=== PATIENT | male | born 1985 | race Hispanic/Latino ===

== ENCOUNTER 2017-10-18 19:26 | Inpatient (IN) | payer MEDICARE ==
--- NOTE | 2017-10-18 21:42 | Emergency Department Report ---
ED Male HPI - General Chief complaint: Urogenital-Male Stated complaint: PEEING BLEED Time Seen by Provider: 10/18/17 21:38 Source: patient, EMS Mode of arrival: Stretcher Limitations: No Limitations - History of Present Illness Initial comments: Gum bleeding for several months MD Complaint: other (painless hematuria) -: Sudden, days(s) (began this morning) Severity: mild Improves with: none Worsens with: none blood in urine. denies: discharge, swelling, mass, rash, urinary retention, dysuria, fever, nausea/vomiting, incontinence - Related Data Sexually active: Yes (uses barrier precaution) Allergies Allergy/AdvReac Type Severity Reaction Status Date / Time No Known Allergies Allergy Verified 10/18/17 19:59 ED Review of Systems ROS: Stated complaint: PEEING BLEED Other details as noted in HPI Comment: All other systems reviewed and negative Constitutional: denies: fever Respiratory: denies: cough Cardiovascular: denies: chest pain ED Past Medical Hx - Past Medical History Hx Asthma: Yes - Surgical History Past Surgical History?: Yes Additional Surgical History: Aortic valve removed - Social History Smoking Status: Current Every Day Smoker Substance Use Type: Marijuana ED Physical Exam - General Limitations: No Limitations General appearance: alert, in no apparent distress - Head Head exam: Present: atraumatic, normocephalic - Eye Eye exam: Present: normal appearance - ENT ENT exam: Present: mucous membranes moist, other (diffuse gum bleeding with severe tooth decay) - Neck Neck exam: Present: normal inspection - Respiratory Respiratory exam: Present: normal lung sounds bilaterally. Absent: respiratory distress - Cardiovascular Cardiovascular Exam: Present: regular rate, normal rhythm. Absent: systolic murmur, diastolic murmur, rubs, gallop - GI/Abdominal GI/Abdominal exam: Present: soft, normal bowel sounds. Absent: distended, tenderness, guarding, rebound - Rectal Rectal exam: Present: deferred - exam: Present: other (deferred) - Extremities Exam Extremities exam: Present: normal inspection - Back Exam Back exam: Present: normal inspection - Neurological Exam Neurological exam: Present: alert, oriented X3 - Psychiatric Psychiatric exam: Present: normal affect, normal mood - Skin Skin exam: Present: warm, dry, intact, normal color. Absent: rash ED Course Vital Signs 10/18/17 10/18/17 10/18/17 19:33 22:17 22:21 Temperature 97.4 F L Pulse Rate 88 64 64 Respiratory 19 20 17 Rate Blood Pressure 106/61 114/67 O2 Sat by Pulse 95 96 97 Oximetry 10/18/17 10/18/17 10/18/17 22:30 22:35 22:36 Temperature Pulse Rate 62 68 Respiratory 14 15 16 Rate Blood Pressure 117/67 117/67 O2 Sat by Pulse 97 96 99 Oximetry 10/18/17 10/18/17 10/18/17 22:41 22:45 22:51 Temperature Pulse Rate 64 62 65 Respiratory 18 18 12 Rate Blood Pressure 117/67 108/61 114/67 O2 Sat by Pulse 97 97 98 Oximetry 10/18/17 10/18/17 10/18/17 22:55 23:00 23:05 Temperature Pulse Rate 62 74 63 Respiratory 19 17 12 Rate Blood Pressure 114/67 118/68 118/68 O2 Sat by Pulse 96 97 97 Oximetry 10/18/17 10/18/17 10/18/17 23:11 23:15 23:21 Temperature Pulse Rate 71 61 71 Respiratory 17 15 13 Rate Blood Pressure 118/68 113/65 113/65 O2 Sat by Pulse 97 98 97 Oximetry 10/18/17 10/18/17 23:25 23:30 Temperature Pulse Rate 62 64 Respiratory 19 17 Rate Blood Pressure 113/65 116/57 O2 Sat by Pulse 97 96 Oximetry ED Medical Decision Making - Lab Data Result diagrams: 10/18/17 22:44 10/18/17 22:44 Laboratory Results - last 24 hr 10/18/17 10/18/17 10/18/17 22:20 22:44 22:44 WBC 10.7 RBC 5.86 H Hgb 16.6 H Hct 48.1 H MCV 82 L MCH 28 MCHC 35 H RDW 12.6 L Plt Count 194 Lymph % (Auto) 13.5 [place] % (Auto) 10.9 H Eos % (Auto) 1.4 Baso % (Auto) 0.6 Lymph # 1.5 [place] # 1.2 H Eos # 0.2 Baso # 0.1 Seg Neutrophils % 73.6 H Seg Neutrophils # 7.9 H PT INR APTT Sodium 141 Potassium 3.4 L Chloride 103.0 Carbon Dioxide 28 Anion Gap 13 BUN 11 Creatinine 0.8 Estimated GFR > 60 BUN/Creatinine Ratio 14 Glucose 107 H Calcium 8.8 Total Bilirubin 0.50 AST 22 ALT 11 Alkaline Phosphatase 84 Total Protein 7.2 Albumin 4.5 Albumin/Globulin Ratio 1.7 Urine Color Yellow Urine Turbidity Clear Urine pH 6.0 Ur Specific [place] 1.023 Urine Protein 30 mg/dl Urine Glucose (UA) 50 Urine Ketones 20 Urine Blood Mod Urine Nitrite Pos Urine Bilirubin Neg Urine Urobilinogen < 2.0 Ur Leukocyte Esterase Neg Urine WBC (Auto) 20.0 H Urine RBC (Auto) > 182.0 10/18/17 22:46 WBC RBC Hgb Hct MCV MCH MCHC RDW Plt Count Lymph % (Auto) [place] % (Auto) Eos % (Auto) Baso % (Auto) Lymph # [place] # Eos # Baso # Seg Neutrophils % Seg Neutrophils # PT > 120.0 H INR > 17.67 H* APTT 182.1 H* Sodium Potassium Chloride Carbon Dioxide Anion Gap BUN Creatinine Estimated GFR BUN/Creatinine Ratio Glucose Calcium Total Bilirubin AST ALT Alkaline Phosphatase Total Protein Albumin Albumin/Globulin Ratio Urine Color Urine Turbidity Urine pH Ur Specific [place] Urine Protein Urine Glucose (UA) Urine Ketones Urine Blood Urine Nitrite Urine Bilirubin Urine Urobilinogen Ur Leukocyte Esterase Urine WBC (Auto) Urine RBC (Auto) - Medical Decision Making Mr. Dye presents with painless hematuria and gum bleeding. Severe coagulopathy with normal liver function. INR > 17 PTT and PT severely elevated. Patient has hx of polysubstance abuse with crack cocaine and methamphetamine. His last use of drugs were several months ago. He denies poisoning or intentional overdose. I have consulted [place] [facility]. Bar Captain agreed with suspicion of rodenticide poisioning which is a long acting anticoagulant. Rodenticide has been used to lace illicit drugs. Patient has had bleeding for several months. Patient will need to be discharged home with vitamin K after inpatient stabilization. FFP and vitamin K has been ordered in the ED. Critical Care Time: Yes Critical care time in (mins) excluding proc time.: 50 Critical care attestation.: If time is entered above; I have spent that time in minutes in the direct care of this critically ill patient, excluding procedure time. ED Disposition Clinical Impression: Drug poisoning, Coagulopathy, Bleeding gums, Hematuria Disposition: OP ADMIT IP TO THIS HOSP Is pt being admited?: Yes Does the pt Need Aspirin: No Condition: Stable Time of Disposition: 02:25
[2017-10-18 22:53] LABS: Bilirubin,Urine NEG (Negative); Blood,Urine MOD (Negative); Color,Urine Yellow (Yellow); Urobilinogen,Urine < 2.0 mg/dL (<2.0)
[2017-10-18 23:04] LABS: RBC,Urine > 182.0 /HPF (0.0-6.0)
[2017-10-18 23:15] LABS: Basophils # (Auto) 0.1 K/mm3 (0.0-0.1); Basophils % (Auto) 0.6 % (0.0-1.8); Eosinophils # (Auto) 0.2 K/mm3 (0.0-0.4); Eosinophils % (Auto) 1.4 % (0.0-4.3); Hematocrit 48.1 % (35.5-45.6); Hemoglobin 16.6 gm/dl (11.8-15.2); Lymphocytes # (Auto) 1.5 K/mm3 (1.2-5.4); Lymphocytes % (Auto) 13.5 % (13.4-35.0); Mean Corpuscular HGB Conc 35 % (32-34); Mean Corpuscular Hemoglobin 28 pg (28-32); Mean Corpuscular Volume 82 fl (84-94); Monocytes # (Auto) 1.2 K/mm3 (0.0-0.8); Monocytes % (Auto) 10.9 % (0.0-7.3); Platelet Count 194 K/mm3 (140-440); Red Blood Count 5.86 M/mm3 (3.65-5.03); Red Cell Distribution Width 12.6 % (13.2-15.2)
[2017-10-18 23:35] LABS: Alanine Aminotransferase 11 units/L (7-56); Albumin 4.5 g/dL (3.9-5); BUN/Creatinine Ratio 14; Blood Urea Nitrogen 11 mg/dL (9-20); Calcium 8.8 mg/dL (8.4-10.2); Hemolysis Index 4
[2017-10-19 00:22] LABS: INR > 17.67 (0.87-1.13); Partial Thromboplastin Time 182.1 Sec. (24.2-36.6)
[2017-10-19] MEDS ORDERED: NACL 0.9% 500 ML 500 ML IV ONE (02:13)
--- NOTE | 2017-10-19 06:07 | History and Physical Report ---
History of Present Illness Date of examination: 10/19/17 Date of admission: 10/19/17 02:25 Chief complaint: Chief complaint: Bleeding from the gums and bloody urine since a.m. History of present illness: ANABEL: 31-year-old male with history of aortic valve replacement on Coumadin comes in for bleeding from the gums and also blood in the urine. Patient is on Coumadin 10 mg. He checked 1 week ago and INR was between 2 and 3. Patient smokes marijuana on a regular basis and also smokes cigarettes about a pack a day. No shortness of breath or chest pain. No fever. No recent travel. Past Medical History Hx Asthma: Yes Surgical History Past Surgical History?: Yes Additional Surgical History: Aortic valve removed Social History Smoking Status: Current Every Day Smoker Substance Use Type: Marijuana Family history Htn Review of Systems ROS: Stated complaint: PEEING BLEED Other details as noted in HPI Comment: All other systems reviewed and negative Constitutional: denies: fever Respiratory: denies: cough Cardiovascular: denies: chest pain Medications and Allergies Allergies Allergy/AdvReac Type Severity Reaction Status Date / Time No Known Allergies Allergy Verified 10/18/17 19:59 Home Medications Medication Instructions Recorded Confirmed Last Taken Type Coumadin 10 mg PO DAILY 10/19/17 10/19/17 10/18/17 10:00 History Exam - Constitutional Vitals: Temp Pulse Resp BP Pulse Ox 98.0 F 57 L 18 119/67 97 10/19/17 04:42 10/19/17 04:42 10/19/17 04:42 10/19/17 04:42 10/19/17 04:42 General appearance: Present: no acute distress, well-nourished - EENT Eyes: Present: PERRL ENT: hearing intact, clear oral mucosa, other (bleeding from the gums) - Neck Neck: Present: supple, normal ROM - Respiratory Respiratory effort: normal Respiratory: bilateral: CTA - Cardiovascular Heart rate: 78 Rhythm: regular Heart Sounds: Present: S1 & S2. Absent: rub, click - Extremities Extremities: no ischemia, pulses intact (hematuria), pulses symmetrical, No edema Peripheral Pulses: within normal limits - Abdominal General gastrointestinal: Present: soft, non-tender, non-distended, normal bowel sounds Male genitourinary: Present: normal - Rectal Rectal Exam: deferred - Integumentary Integumentary: Present: clear, warm, dry - Musculoskeletal Musculoskeletal: gait normal, strength equal bilaterally - Psychiatric Psychiatric: appropriate mood/affect, intact judgment & insight - Neurologic Neurologic: CNII-XII intact, moves all extremities - Allied Health Allied health notes reviewed: nursing, case management Results - Labs CBC & Chem 7: 10/18/17 22:44 10/18/17 22:44 Labs: Laboratory Last Values WBC 10.7 K/mm3 (4.5-11.0) 10/18/17 22:44 RBC 5.86 M/mm3 (3.65-5.03) H 10/18/17 22:44 Hgb 16.6 gm/dl (11.8-15.2) H 10/18/17 22:44 Hct 48.1 % (35.5-45.6) H 10/18/17 22:44 MCV 82 fl (84-94) L 10/18/17 22:44 MCH 28 pg (28-32) 10/18/17 22:44 MCHC 35 % (32-34) H 10/18/17 22:44 RDW 12.6 % (13.2-15.2) L 10/18/17 22:44 Plt Count 194 K/mm3 (140-440) 10/18/17 22:44 Lymph % (Auto) 13.5 % (13.4-35.0) 10/18/17 22:44 [place] % (Auto) 10.9 % (0.0-7.3) H 10/18/17 22:44 Eos % (Auto) 1.4 % (0.0-4.3) 10/18/17 22:44 Baso % (Auto) 0.6 % (0.0-1.8) 10/18/17 22:44 Lymph # 1.5 K/mm3 (1.2-5.4) 10/18/17 22:44 [place] # 1.2 K/mm3 (0.0-0.8) H 10/18/17 22:44 Eos # 0.2 K/mm3 (0.0-0.4) 10/18/17 22:44 Baso # 0.1 K/mm3 (0.0-0.1) 10/18/17 22:44 Seg Neutrophils % 73.6 % (40.0-70.0) H 10/18/17 22:44 Seg Neutrophils # 7.9 K/mm3 (1.8-7.7) H 10/18/17 22:44 PT > 120.0 Sec. (12.2-14.9) H 10/18/17 22:46 INR > 17.67 (0.87-1.13) H* 10/18/17 22:46 APTT 182.1 Sec. (24.2-36.6) H* 10/18/17 22:46 Sodium 141 mmol/L (137-145) 10/18/17 22:44 Potassium 3.4 mmol/L (3.6-5.0) L 10/18/17 22:44 Chloride 103.0 mmol/L (98-107) 10/18/17 22:44 Carbon Dioxide 28 mmol/L (22-30) 10/18/17 22:44 Anion Gap 13 mmol/L 10/18/17 22:44 BUN 11 mg/dL (9-20) 10/18/17 22:44 Creatinine 0.8 mg/dL (0.8-1.5) 10/18/17 22:44 Estimated GFR > 60 ml/min 10/18/17 22:44 BUN/Creatinine Ratio 14 % 10/18/17 22:44 Glucose 107 mg/dL (75-100) H 10/18/17 22:44 Calcium 8.8 mg/dL (8.4-10.2) 10/18/17 22:44 Total Bilirubin 0.50 mg/dL (0.1-1.2) 10/18/17 22:44 AST 22 units/L (5-40) 10/18/17 22:44 ALT 11 units/L (7-56) 10/18/17 22:44 Alkaline Phosphatase 84 units/L (35-129) 10/18/17 22:44 Total Protein 7.2 g/dL (6.3-8.2) 10/18/17 22:44 Albumin 4.5 g/dL (3.9-5) 10/18/17 22:44 Albumin/Globulin Ratio 1.7 % 10/18/17 22:44 Urine Color Yellow (Yellow) 10/18/17 22:20 Urine Turbidity Clear (Clear) 10/18/17 22:20 Urine pH 6.0 (5.0-7.0) 10/18/17 22:20 Ur Specific [place] 1.023 (1.003-1.030) 10/18/17 22:20 Urine Protein 30 mg/dl mg/dL (Negative) 10/18/17 22:20 Urine Glucose (UA) 50 mg/dL (Negative) 10/18/17 22:20 Urine Ketones 20 mg/dL (Negative) 10/18/17 22:20 Urine Blood Mod (Negative) 10/18/17 22:20 Urine Nitrite Pos (Negative) 10/18/17 22:20 Urine Bilirubin Neg (Negative) 10/18/17 22:20 Urine Urobilinogen < 2.0 mg/dL (<2.0) 10/18/17 22:20 Ur Leukocyte Esterase Neg (Negative) 10/18/17 22:20 Urine WBC (Auto) 20.0 /HPF (0.0-6.0) H 10/18/17 22:20 Urine RBC (Auto) > 182.0 /HPF (0.0-6.0) 10/18/17 22:20 Salicylates < 0.3 mg/dL (2.8-20.0) L 10/19/17 02:23 Acetaminophen < 5.0 ug/mL (10.0-30.0) L 10/19/17 02:23 Blood Type O NEGATIVE 10/19/17 02:08 Short CBC 10/18/17 Range/Units 22:44 WBC 10.7 (4.5-11.0) K/mm3 Hgb 16.6 H (11.8-15.2) gm/dl Hct 48.1 H (35.5-45.6) % Plt Count 194 (140-440) K/mm3 BMP 10/18/17 22:44 Sodium 141 Potassium 3.4 L Chloride 103.0 Carbon Dioxide 28 BUN 11 Creatinine 0.8 Glucose 107 H Calcium 8.8 Liver Function 10/18/17 Range/Units 22:44 Total Bilirubin 0.50 (0.1-1.2) mg/dL AST 22 (5-40) units/L ALT 11 (7-56) units/L Alkaline Phosphatase 84 (35-129) units/L Albumin 4.5 (3.9-5) g/dL Urine 06/29/18 Range/Units 22:20 Urine Color Yellow (Yellow) Urine pH 6.0 (5.0-7.0) Ur Specific [place] 1.023 (1.003-1.030) Urine Protein 30 mg/dl (Negative) mg/dL Urine Glucose (UA) 50 (Negative) mg/dL Assessment and Plan Advance Directives: Yes (full code) VTE prophylaxis?: Mechanical Plan of care discussed with patient/family: Yes - Patient Problems (1) Coagulopathy Current Visit: Yes Status: Acute Plan to address problem: Secondary to Coumadin overdose Vitamin K ordered FFP is ordered (2) Bleeding gums Current Visit: Yes Status: Acute Plan to address problem: Secondary to Coumadin (3) Hematuria Current Visit: Yes Status: Acute Qualifiers: Hematuria type: unspecified type Qualified Code(s): R31.9 - Hematuria, unspecified Plan to address problem: Secondary to Coumadin (4) Tetrahydrocannabinol (THC) use disorder, moderate, dependence Current Visit: Yes Status: Chronic Plan to address problem: Patient counseled ER physician feels that his marijuana maybe laced with rat poison. Patient does not have any clue about rat poisoning. We will take into consideration (5) DVT prophylaxis Current Visit: Yes Status: Acute Plan to address problem: On scd's
[2017-10-19] MEDS ORDERED: NACL 0.9% 500 ML 500 ML ONE (06:09)
[2017-10-19] MEDS ORDERED: MORPHINE IV PRN (06:16)
[2017-10-19] MEDS ORDERED: ZOFRAN IV PRN (06:16)
[2017-10-19] MEDS ORDERED: SODIUM CHLORIDE FLUSH SYRINGE 10 ML IV PRN (06:16)
[2017-10-19] MEDS ORDERED: TYLENOL PO PRN (06:16)
[2017-10-19] MEDS ORDERED: PERCOCET 5/325 PO PRN (06:16)
[2017-10-19] MEDS ORDERED: VITAMIN K (ADULT ONLY) SUB-Q ONE (06:19)
[2017-10-19] MEDS ORDERED: D5NS 1,000 ML IV SCH (07:00)
[2017-10-19 09:29] VITALS: BP 122/65
[2017-10-19] MEDS ORDERED: SODIUM CHLORIDE FLUSH SYRINGE 10 ML IV SCH (10:00)
[2017-10-19] MEDS ORDERED: PEPCID IV SCH (10:00)
[2017-10-19] MEDS ORDERED: VITAMIN K (ADULT ONLY) ONE (10:39)
[2017-10-19 11:19] LABS: Basophils % (Auto) 0.5 % (0.0-1.8); Eosinophils # (Auto) 0.1 K/mm3 (0.0-0.4); Eosinophils % (Auto) 1.4 % (0.0-4.3); Hematocrit 46.6 % (35.5-45.6); Hemoglobin 16.1 gm/dl (11.8-15.2); Lymphocytes # (Auto) 1.3 K/mm3 (1.2-5.4); Lymphocytes % (Auto) 14.3 % (13.4-35.0); Mean Corpuscular HGB Conc 35 % (32-34); Mean Corpuscular Hemoglobin 29 pg (28-32); Mean Corpuscular Volume 84 fl (84-94); Monocytes # (Auto) 1.1 K/mm3 (0.0-0.8); Monocytes % (Auto) 11.6 % (0.0-7.3); Platelet Count 185 K/mm3 (140-440); Red Blood Count 5.57 M/mm3 (3.65-5.03); Red Cell Distribution Width 12.7 % (13.2-15.2)
[2017-10-19 11:34] LABS: Alanine Aminotransferase 13 units/L (7-56); Albumin 4.1 g/dL (3.9-5); BUN/Creatinine Ratio 17; Blood Urea Nitrogen 12 mg/dL (9-20); Calcium 9.1 mg/dL (8.4-10.2); Hemolysis Index 12
--- NOTE | 2017-10-19 17:25 | Event Note ---
Date: 10/19/17 Patient left against medical advise.
== END 2017-10-19 11:10 | disposition left against medical advice (07) | DRG 918 ==
LOC: ED 19:26 → 3A 10-19 02:25
PROVIDERS: ADMIT Internal Medicine; ATTEND Internal Medicine
PROC: 30233L1 Transfusion of Nonautologous Fresh Plasma into Peripheral Vein, Percutaneous Approach (ICD-10-PCS; principal; 2017-10-19)
PROC: 30233K1 Transfusion of Nonautologous Frozen Plasma into Peripheral Vein, Percutaneous Approach (ICD-10-PCS; 2017-10-19)
DX: T45.511A Poisoning by anticoagulants, accidental (unintentional), initial encounter (principal); D68.9 Coagulation defect, unspecified; R31.9 Hematuria, unspecified; K06.8 Other specified disorders of gingiva and edentulous alveolar ridge; F17.210 Nicotine dependence, cigarettes, uncomplicated; F12.90 Cannabis use, unspecified, uncomplicated; Z95.2 Presence of prosthetic heart valve; Y92.89 Other specified places as the place of occurrence of the external cause; Z53.21 Procedure and treatment not carried out due to patient leaving prior to being seen by health care provider
CPT/HCPCS: 36415; 80053; 80320; 81001; 85025; 85610; 85730; 86900; 86901; 87086; 99291; G0480; J3430; J7040; P9017

== ENCOUNTER 2017-11-05 10:04 | Emergency (ER) | payer MEDICARE ==
[2017-11-05 10:31] VITALS: BP 110/63
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
[2017-11-05 13:54] LABS: Basophils # (Auto) 0.1 K/mm3 (0.0-0.1); Basophils % (Auto) 0.7 % (0.0-1.8); Eosinophils # (Auto) 0.2 K/mm3 (0.0-0.4); Hematocrit 46.9 % (35.5-45.6); Hemoglobin 15.8 gm/dl (11.8-15.2); Lymphocytes # (Auto) 1.7 K/mm3 (1.2-5.4); Lymphocytes % (Auto) 20.2 % (13.4-35.0); Mean Corpuscular HGB Conc 34 % (32-34); Mean Corpuscular Hemoglobin 28 pg (28-32); Mean Corpuscular Volume 85 fl (84-94); Monocytes % (Auto) 11.7 % (0.0-7.3); Platelet Count 228 K/mm3 (140-440); Red Blood Count 5.54 M/mm3 (3.65-5.03); Red Cell Distribution Width 13.1 % (13.2-15.2)
[2017-11-05 14:08] LABS: BUN/Creatinine Ratio 17; Blood Urea Nitrogen 12 mg/dL (9-20); Calcium 8.9 mg/dL (8.4-10.2); Hemolysis Index 13
[2017-11-05 14:10] LABS: INR 12.64 (0.87-1.13); Partial Thromboplastin Time 218.4 Sec. (24.2-36.6)
--- NOTE | 2017-11-05 14:20 | XRay Report ---
LEFT ELBOW, 3 views: History: left elbow pain. The bony architecture is intact without evidence of fracture or dislocation. Moderate soft tissue swelling is suspected. IMPRESSION: Soft tissue swelling. No acute osseous injury identified.
--- NOTE | 2017-11-05 14:21 | XRay Report ---
LEFT FOREARM: History: Swelling, pain. AP and lateral views of the forearm demonstrate normal mineralization and contours for this patient's age. No fracture or joint pathology is identified. Moderate posterior soft tissue swelling is suspected. IMPRESSION: Soft tissue swelling. No acute osseous injury identified.
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
== END 2017-11-05 17:42 | disposition left against medical advice (07) ==
LOC: ED 10:04
DX: M79.602 Pain in left arm (principal); R22.32 Localized swelling, mass and lump, left upper limb
CPT/HCPCS: 36415; 80048; 82550; 85025; 85610; 85730; 99283